=== PATIENT | female | born 1960 | race African-American/Black ===

== ENCOUNTER 2020-05-22 00:11 | Inpatient (IN) | payer MEDICAID, OTHER ==
[~2020-05-22] VITALS: Ht 162.6 cm; Wt 79.4 kg
[2020-05-22] MEDS ORDERED: ACETAMINOPHEN 325MG TABLET PO STA (01:37)
[2020-05-22] MEDS ORDERED: PIPERACILLIN/TAZ 3.375G PREMIX 50 ML IV ONE (01:45)
[2020-05-22] MEDS ORDERED: LEVOFLOXACIN 750MG PREMIX 150 ML IV ONE (01:45)
[2020-05-22] MEDS ORDERED: SODIUM CHLORIDE 0.9% 500 ML IV ONE (01:45)
[2020-05-22 02:58] LABS: BASOPHILS % 0.4 % (0.0-2.0); EOSINOPHILS % 2.6 % (0.0-5.0); HEMATOCRIT. 39.6 % (36.0-48.0); HEMOGLOBIN. 13.3 g/dL (12.0-16.0); LYMPHOCYTES % 23.2 % (20.0-50.0); MEAN CORPUSCULAR HEMOGLOBIN 28.2 pg (28.0-32.0); MEAN CORPUSCULAR VOLUME 83.7 fL (81.0-99.0); MEAN PLATELET VOLUME 8.3 fl (7.4-10.4); MONOCYTES % 7.5 % (2.0-8.0); NEUTROPHILS % 66.3 % (40.0-76.0); PLATELET 263 x1000/uL (130-400); RED BLOOD CELL COUNT 4.73 mill/uL (4.2-5.4); RED CELL DISTRIBUTION WIDTH 13.3 % (11.6-14.6)
[2020-05-22 02:59] LABS: CHLORIDE 105 mEq/L (98-107)
[2020-05-22 03:03] LABS: INR 0.9
[2020-05-22 03:08] LABS: CREATINE KINASE 180 IU/L (26-192)
[2020-05-22 03:18] LABS: CLARITY URINE CLEAR (CLEAR); COLOR URINE YELLOW (YELLOW); KETONES URINE NEGATIVE (NEGATIVE); LEUKOCYTE ESTERASE URINE NEGATIVE (NEGATIVE); NITRITE URINE NEGATIVE (NEGATIVE); OCCULT BLOOD URINE NEGATIVE (NEGATIVE); PROTEIN URINE NEGATIVE (NEGATIVE); SPECIFIC GRAVITY URINE 1.014 (1.005-1.030); UROBILINOGEN URINE 0.2 E.U./dL (0.2-1.0)
[2020-05-22] MEDS ORDERED: NITROGLYCERIN 0.4MG TABLET SL SL PRN (06:30)
[2020-05-22] MEDS ORDERED: ACETAMINOPHEN 325MG TABLET PO PRN (06:30)
[2020-05-22] MEDS ORDERED: MAGNESIUM/ALUMINUM HYDROXIDE/SIMETHICONE 30ML UDC PO PRN (06:30)
[2020-05-22] MEDS ORDERED: NA PHOS,M-B/NA PHOS,DI-BA ENEMA 118ML PR PRN (06:30)
[2020-05-22] MEDS ORDERED: DEXTROSE 50% WATER 50ML SYRINGE IV PRN (06:30)
[2020-05-22] MEDS ORDERED: DOCUSATE SODIUM 100MG CAPSULE PO PRN (06:30)
[2020-05-22] MEDS ORDERED: ONDANSETRON HCL 4MG/2ML INJ IV PRN (06:30)
[2020-05-22] MEDS ORDERED: IPRATROPIUM/ALBUTEROL 0.5-3(2.5)MG/3ML NEB NEB PRN (06:30)
[2020-05-22] MEDS ORDERED: KETOROLAC 15MG/ML VIAL IV PRN (06:30)
[2020-05-22] MEDS ORDERED: GUAIFENESIN 200MG/10ML SUGAR FREE UDC PO PRN (06:30)
[2020-05-22] MEDS ORDERED: CLONIDINE 0.1MG TABLET PO PRN (06:30)
[2020-05-22 06:53] LABS: C REACTIVE PROTEIN QUANT 0.5 mg/L (0.0-3.0)
[2020-05-22] MEDS: SODIUM CHLORIDE 0.9% 1,000 ML IV SCH ×2 (07:30→16:30)
[2020-05-22] MEDS: ENOXAPARIN 40MG/0.4ML SYR SUBCUT SCH (08:00)
[2020-05-22] MEDS: PANTOPRAZOLE SODIUM 40 MG/VIAL IV SCH (08:00)
[2020-05-22] MEDS: ASPIRIN 325MG TABLET PO SCH (08:00)
[2020-05-22] MEDS: ZINC SULFATE 220 MG ( 50 ) CAPSULE PO SCH (08:00)
[2020-05-22] MEDS: ASCORBIC ACID 500 MG TABLET PO SCH ×2 (08:34→20:54)
[2020-05-22] MEDS ORDERED: CEFTRIAXONE 1 G PREMIX 50 ML IV SCH (09:00)
[2020-05-22] MEDS: BLOOD SUGAR DIAGNOSTIC STRIP TEST SCH ×4 (09:04→20:17)
[2020-05-22] MEDS: INSULIN LISPRO 100 UNITS/ML SUBCUT SCH ×4 (09:04→20:59)
[2020-05-22 09:16] LABS: *AMPHETAMINES SCREEN URINE NEGATIVE (NEGATIVE); *BARBITURATES SCREEN URINE NEGATIVE (NEGATIVE); *BENZODIAZEPINES SCREEN URINE NEGATIVE (NEGATIVE); *COCAINE SCREEN URINE NEGATIVE (NEGATIVE)
[2020-05-22 09:17] LABS: CANNABINOID URINE SCREEN NEGATIVE (NEGATIVE); METHADONE URINE SCREEN NEGATIVE (NEGATIVE); OPIATES URINE SCREEN NEGATIVE (NEGATIVE); PHENCYCLIDINE URINE SCREEN NEGATIVE (NEGATIVE)
[2020-05-22 10:00] VITALS: BP 132/84
[2020-05-22 11:48] VITALS: BP 148/87
[2020-05-22] MEDS: ACETAMINOPHEN 325MG TABLET PO PRN ×2 (11:55→20:54)
[2020-05-22] MEDS ORDERED: LISI-604 MT (12:16)
[2020-05-22] MEDS ORDERED: LATA2.5D2 EACHEYE (12:16)
[2020-05-22] MEDS ORDERED: METF-416 MT (12:16)
[2020-05-22] MEDS ORDERED: ASPI-986 PO (12:16)
[2020-05-22] MEDS ORDERED: AMLO5TAB88 MT (12:16)
[2020-05-22 15:21] LABS: CREATINE KINASE 159 IU/L (26-192)
[2020-05-22 15:22] LABS: CREATINE KINASE MB FRACTION < 1.0 ng/mL (0.5-3.6)
[2020-05-22 16:00] VITALS: BP 133/86
[2020-05-22] MEDS ORDERED: INFLUENZA VACCINE 05/PF 0.5 ML VIAL IM ONE (18:00)
[2020-05-22 20:00] VITALS: BP 120/70
[2020-05-22] MEDS ORDERED: ZOLPIDEM TARTRATE 5MG TABLET PO PRN (21:00)
[2020-05-22 23:40] VITALS: BP 105/72
[2020-05-22 23:49] LABS: CREATINE KINASE 147 IU/L (26-192)
[2020-05-22 23:50] LABS: CREATINE KINASE MB FRACTION < 1.0 ng/mL (0.5-3.6)
[2020-05-23] MEDS: SODIUM CHLORIDE 0.9% 1,000 ML IV SCH ×2 (01:14→17:46)
[2020-05-23] MEDS: LEVOFLOXACIN 500MG PREMIX 100 ML IV SCH (01:14)
[2020-05-23 04:00] VITALS: BP 128/87
[2020-05-23] MEDS ORDERED: LEVOFLOXACIN 500MG PREMIX 100 ML IV SCH (04:00)
[2020-05-23] MEDS: BLOOD SUGAR DIAGNOSTIC STRIP TEST SCH ×4 (05:36→21:00)
[2020-05-23] MEDS: ACETAMINOPHEN 325MG TABLET PO PRN ×2 (06:23→14:01)
[2020-05-23] MEDS: INSULIN LISPRO 100 UNITS/ML SUBCUT SCH ×4 (06:27→21:00)
[2020-05-23 08:00] VITALS: BP 125/75
[2020-05-23] MEDS: ASPIRIN 325MG TABLET PO SCH (08:18)
[2020-05-23] MEDS: ASCORBIC ACID 500 MG TABLET PO SCH ×2 (08:18→20:46)
[2020-05-23] MEDS: ZINC SULFATE 220 MG ( 50 ) CAPSULE PO SCH (08:18)
[2020-05-23] MEDS: ENOXAPARIN 40MG/0.4ML SYR SUBCUT SCH ×2 (08:19→08:25)
[2020-05-23] MEDS: PANTOPRAZOLE SODIUM 40 MG/VIAL IV SCH (09:10)
[2020-05-23] MEDS: CEFTRIAXONE 1,000 MG in DEXTROSE 5% WATER 50 ML IV SCH (09:11)
[2020-05-23 12:00] VITALS: BP 116/69
[2020-05-23] MEDS: LISINOPRIL 20MG TABLET PO SCH (12:53)
[2020-05-23 16:00] VITALS: BP 116/69
[2020-05-23 19:46] VITALS: BP 116/63
[2020-05-23] MEDS: ATORVASTATIN CALCIUM 10MG TABLET PO SCH (20:46)
[2020-05-24] VITALS: BP 140/75
[2020-05-24] MEDS: SODIUM CHLORIDE 0.9% 1,000 ML IV SCH (01:59)
[2020-05-24] MEDS: LEVOFLOXACIN 500MG PREMIX 100 ML IV SCH (01:59)
[2020-05-24 04:00] VITALS: BP 148/84
[2020-05-24 06:53] LABS: BASOPHILS % 0.5 % (0.0-2.0); EOSINOPHILS % 6.6 % (0.0-5.0); HEMOGLOBIN. 12.7 g/dL (12.0-16.0); LYMPHOCYTES % 30.8 % (20.0-50.0); MEAN CORPUSCULAR HEMOGLOBIN 28.6 pg (28.0-32.0); MEAN CORPUSCULAR VOLUME 83.5 fL (81.0-99.0); MEAN PLATELET VOLUME 8.5 fl (7.4-10.4); NEUTROPHILS % 52.1 % (40.0-76.0); PLATELET 243 x1000/uL (130-400); RED BLOOD CELL COUNT 4.43 mill/uL (4.2-5.4); RED CELL DISTRIBUTION WIDTH 13.1 % (11.6-14.6)
[2020-05-24] MEDS ORDERED: LATA2.5D2 EACHEYE (07:04)
[2020-05-24] MEDS: BLOOD SUGAR DIAGNOSTIC STRIP TEST SCH ×4 (07:10→20:58)
[2020-05-24 07:27] LABS: CHLORIDE 109 mEq/L (98-107)
[2020-05-24 07:33] LABS: PHOSPHORUS 3.5 mg/dL (2.5-4.9)
[2020-05-24 08:00] VITALS: BP 131/85
[2020-05-24] MEDS: INSULIN LISPRO 100 UNITS/ML SUBCUT SCH ×4 (08:27→21:00)
[2020-05-24] MEDS: LISINOPRIL 20MG TABLET PO SCH (08:54)
[2020-05-24] MEDS: ZINC SULFATE 220 MG ( 50 ) CAPSULE PO SCH (08:55)
[2020-05-24] MEDS: ENOXAPARIN 40MG/0.4ML SYR SUBCUT SCH (08:55)
[2020-05-24] MEDS: ASPIRIN 325MG TABLET PO SCH (08:55)
[2020-05-24] MEDS: ASCORBIC ACID 500 MG TABLET PO SCH ×2 (08:55→20:59)
[2020-05-24] MEDS: FAMOTIDINE 20MG TABLET PO SCH ×2 (08:56→20:59)
[2020-05-24] MEDS: CEFTRIAXONE 1,000 MG in DEXTROSE 5% WATER 50 ML IV SCH (08:56)
[2020-05-24 12:00] VITALS: BP 127/78
[2020-05-24] MEDS: ACETAMINOPHEN 325MG TABLET PO PRN (15:51)
[2020-05-24 16:00] VITALS: BP 133/81
[2020-05-24 20:00] VITALS: BP 124/76
[2020-05-24] MEDS: ATORVASTATIN CALCIUM 10MG TABLET PO SCH (21:00)
[2020-05-25] VITALS: BP 123/71
[2020-05-25] MEDS: LEVOFLOXACIN 500MG PREMIX 100 ML IV SCH (02:21)
[2020-05-25 04:00] VITALS: BP 135/84
[2020-05-25] MEDS: BLOOD SUGAR DIAGNOSTIC STRIP TEST SCH ×2 (06:51→12:05)
[2020-05-25] MEDS: INSULIN LISPRO 100 UNITS/ML SUBCUT SCH ×2 (06:52→12:05)
[2020-05-25 08:00] VITALS: BP 127/78
[2020-05-25] MEDS: LISINOPRIL 20MG TABLET PO SCH (08:31)
[2020-05-25] MEDS: ZINC SULFATE 220 MG ( 50 ) CAPSULE PO SCH (08:31)
[2020-05-25] MEDS: FAMOTIDINE 20MG TABLET PO SCH (08:31)
[2020-05-25] MEDS: ASPIRIN 325MG TABLET PO SCH (08:31)
[2020-05-25] MEDS: ASCORBIC ACID 500 MG TABLET PO SCH (08:31)
[2020-05-25] MEDS: ENOXAPARIN 40MG/0.4ML SYR SUBCUT SCH (08:53)
[2020-05-25] MEDS: CEFTRIAXONE 1,000 MG in DEXTROSE 5% WATER 50 ML IV SCH (10:08)
[2020-05-25 11:07] VITALS: BP 119/66
== END 2020-05-25 12:04 | disposition home or self-care (01) | DRG 872 ==
LOC: ER 00:11 → 8WST 03:26 → ENRESERV 10:07
PROVIDERS: ADMIT Internal Medicine; ATTEND Internal Medicine
DX: A41.9 Sepsis, unspecified organism (principal); H66.91 Otitis media, unspecified, right ear; I10 Essential (primary) hypertension; E11.9 Type 2 diabetes mellitus without complications; E11.65 Type 2 diabetes mellitus with hyperglycemia; Z82.49 Family history of ischemic heart disease and other diseases of the circulatory system; Z83.3 Family history of diabetes mellitus; Z88.8 Allergy status to other drugs, medicaments and biological substances; Z79.899 Other long term (current) drug therapy
CPT/HCPCS: 36415; 70486; 71045; 80053; 80061; 80305; 81003; 82550; 82553; 82962; 83036; 83605; 83735; 83880; 84100; 84484; 85025; 85651; 86140; 90686; 93005; 93970; 99285; C9113; J0696; J1650; J1815; J1956; J2543; J7030; J7060